=== PATIENT | male | born 1985 | race Caucasian/White ===

== ENCOUNTER 2023-05-04 22:21 | Emergency (ER) | payer BC, OTHER ==
[2023-05-04] MEDS ORDERED: Lidocaine 1% 5 ML VIAL INJECT ONE (22:41)
[2023-05-04] MEDS ORDERED: Bacitracin Oint 1 GM U/D Packet TOP ONE (22:42)
[2023-05-04] MEDS ORDERED: Diphtheria,Pertussis(Acell),Tetanus Vaccine 0.5 ML Syringe IM ONE (22:42)
[2023-05-04] MEDS ORDERED: Tranexamic Acid 1,000 MG/10 ML Vial TOP ONE (23:21)
[2023-05-04] MEDS ORDERED: Silver Nitrate Applicator Each ONE ×2 (23:51→23:54)
[2023-05-05] MEDS ORDERED: Ketorolac 30 MG/ML SDV IM ONE (00:10)
== END 2023-05-05 00:27 | disposition home or self-care (01) ==
LOC: JP.ED 22:21
DX: S61.012A Laceration without foreign body of left thumb without damage to nail, initial encounter (principal); I10 Essential (primary) hypertension; Z23 Encounter for immunization; W26.0XXA Contact with knife, initial encounter
CPT/HCPCS: 12001; 99282